=== PATIENT | female | born 1990 | race Caucasian/White ===

== ENCOUNTER 2020-05-18 02:50 | Emergency (ER) | payer OTHER, MEDICAID ==
[~2020-05-18] VITALS: Ht 165.1 cm; Wt 117.9 kg
[2020-05-18] MEDS ORDERED: HYDROCODONE-ACE10 ML PO (03:51)
[2020-05-18] MEDS ORDERED: AMOXICILLI400 MG/5 M PO (03:59)
[2020-05-18 04:14] VITALS: BP 154/68
== END 2020-05-18 04:18 | disposition home or self-care (01) ==
LOC: M.ERS 02:50
DX: H60.93 Unspecified otitis externa, bilateral (principal)